=== PATIENT | female | born 2000 | race Caucasian/White ===

== ENCOUNTER → 2020-05-07 | Outpatient (CLI) | payer OTHER ==
[~2020-05-07] MED LIST: BUDE3CAP PO
== END ==
LOC: M LAB 11:58
PROVIDERS: ATTEND Physician Assistant
DX: K50.90 Crohn's disease, unspecified, without complications (principal)

== ENCOUNTER 2020-05-11 12:34 | Outpatient (CLI) | payer OTHER ==
[~2020-05-11] VITALS: Ht 165.1 cm; Wt 71.0 kg
[2020-05-11] VITALS (8 sets, daily range): BP systolic 101–117; BP diastolic 51–64
[2020-05-11] MEDS ORDERED: ACETAMINOPHEN 650MG PO PRIOR TO INFUSION PO ONE (13:30)
[2020-05-11] MEDS ORDERED: dexameTHASONE 20 MG IV PRIOR TO INFUSION IV ONE (13:30)
[2020-05-11] MEDS ORDERED: diphenhydrAMINE 25MG PO PRIOR TO INFUSION PO ONE (13:30)
[2020-05-11] MEDS ORDERED: NS 1,000 ML IV SCH (13:30)
[2020-05-11] MEDS ORDERED: inFLIXimab INJECTION 400 MG in NS 210 ML IV ONE (13:30)
== END 2020-05-11 16:20 | disposition home or self-care (01) ==
LOC: M INFU 12:34
PROVIDERS: ATTEND Physician Assistant
DX: K50.90 Crohn's disease, unspecified, without complications (principal); Z88.0 Allergy status to penicillin; Z88.8 Allergy status to other drugs, medicaments and biological substances
CPT/HCPCS: 96375; 96413; 96415; J1100; J1745

== ENCOUNTER 2020-07-09 08:40 | Outpatient (CLI) | payer OTHER ==
[2020-07-09] MEDS ORDERED: ACETAMINOPHEN TAB 650MG DOSE (2X325MG) ONE (08:53)
[2020-07-09] MEDS ORDERED: dexameTHASONE 20MG/5ML VIAL (J1100 PER 1MG) ONE (08:53)
[2020-07-09] MEDS ORDERED: dexameTHASONE 20MG/5ML VIAL (J1100 PER 1MG) As Ordered ONE (08:53)
[2020-07-09] MEDS ORDERED: inFLIXimab 100MG/10ML VIAL (REMICADE) J1745 PER 10MG ONE (08:53)
[2020-07-09] MEDS ORDERED: ACETAMINOPHEN TAB 650MG DOSE (2X325MG) As Ordered ONE (08:54)
== END 2020-07-09 12:30 | disposition home or self-care (01) ==
LOC: M INFU 08:40
PROVIDERS: ATTEND Nurse Practitioner Adult Health
DX: K50.90 Crohn's disease, unspecified, without complications (principal)
CPT/HCPCS: 96375; 96413; 96415; J1100; J1745

== ENCOUNTER → 2020-08-24 | Outpatient (CLI) | payer OTHER ==
[2020-08-24 15:04] LABS: BASO % 0.3 % (0.0-1.0); EOS # 0.1 10^3/uL (0.0-0.5); EOS % 0.9 % (0.0-3.0); HEMATOCRIT 40.5 % (36.0-47.0); HEMOGLOBIN 13.7 g/dl (12.0-15.5); LYMPH # 2.3 10^3/uL (1.5-5.0); LYMPH % 33.8 % (24.0-44.0); MEAN CORPUSCULAR HEMOGLOBIN 30.2 pg (27.0-33.0); MEAN CORPUSCULAR HGB CONC 33.8 g/dl (32.0-36.5); MEAN CORPUSCULAR VOLUME 89.2 fl (80.0-96.0); MONO # 0.4 10^3/uL (0.0-0.8); NEUTROPHILS % 58.9 % (36.0-66.0); PLATELET COUNT, AUTOMATED 250 10^3/uL (150-450); RED BLOOD COUNT 4.54 10^6/uL (4.00-5.40); WHITE BLOOD COUNT 6.8 10^3/uL (4.0-10.0)
[2020-08-24 15:33] LABS: ALBUMIN 3.5 GM/DL (3.2-5.2); ALT/SGPT 36 U/L (12-78); BILIRUBIN,DIRECT 0.2 MG/DL (0.0-0.2); BILIRUBIN,TOTAL 0.7 MG/DL (0.2-1.0); TOTAL PROTEIN 6.6 GM/DL (6.4-8.2)
[2020-08-24 15:52] LABS: HEPATITIS B SURFACE ANTIGEN NEGATIVE (NEGATIVE)
[2020-08-24 16:21] LABS: HEPATITIS C VIRUS ABY INDEX 0.1 INDEX (<0.8)
[2020-08-25 05:07] LABS: HEPATITIS A IgG TOTAL Negative (Negative); HEPATITIS B CORE ANTIBODY IGG Negative (Negative)
== END ==
LOC: M LAB 14:22
PROVIDERS: ATTEND Internal Medicine Gastroenterology
DX: D51.9 Vitamin B12 deficiency anemia, unspecified (principal); K50.80 Crohn's disease of both small and large intestine without complications

== ENCOUNTER → 2020-09-08 | Outpatient (REF) | payer OTHER | LOC: M SFHCWAGY 12:49 | PROVIDERS: ATTEND Nurse Practitioner Women's Health | DX: Z11.3 Encounter for screening for infections with a predominantly sexual mode of transmission (principal) ==

== ENCOUNTER 2021-01-15 12:26 | Outpatient (CLI) | payer OTHER ==
[~2021-01-15] VITALS: Ht 165.1 cm; Wt 70.0 kg
[~2021-01-15 12:26] MED LIST changes: +ACETAMINOPHEN 650MG ER TAB (TYLENOL ARTHRITIS) PO ONE; +NS 1,000 ML IV SCH; +diphenhydrAMINE 25MG CAP PO ONE
[2021-01-15 12:30] VITALS: BP 118/56
[2021-01-15] MEDS ORDERED: inFLIXimab INJECTION 400 MG in NS 210 ML IV ONE (12:30)
[2021-01-15] MEDS ORDERED: dexameTHASONE 20MG/5ML VIAL (J1100 PER 1MG) IV ONE (14:00)
[2021-01-15 14:30] VITALS: BP 118/56
[2021-01-15 15:00] VITALS: BP 103/59
[2021-01-15 16:00] VITALS: BP 121/61
== END 2021-01-15 16:00 | disposition home or self-care (01) ==
LOC: M INFU 12:26
PROVIDERS: ATTEND Internal Medicine Gastroenterology
DX: K50.90 Crohn's disease, unspecified, without complications (principal); Z88.0 Allergy status to penicillin; Z88.8 Allergy status to other drugs, medicaments and biological substances
CPT/HCPCS: 96375; 96413; J1100; J1745

== ENCOUNTER → 2021-02-25 | Outpatient (CLI) | payer OTHER ==
[~2021-02-25] MED LIST changes: -ACETAMINOPHEN 650MG ER TAB (TYLENOL ARTHRITIS) PO ONE; -NS 1,000 ML IV SCH; -diphenhydrAMINE 25MG CAP PO ONE
[2021-02-25 11:53] LABS: BASO # 0.1 10^3/uL (0.0-0.2); BASO % 0.8 % (0.0-1.0); EOS # 0.1 10^3/uL (0.0-0.5); EOS % 1.4 % (0.0-3.0); HEMATOCRIT 39.8 % (36.0-47.0); HEMOGLOBIN 13.4 g/dl (12.0-15.5); LYMPH # 2.1 10^3/uL (1.5-5.0); LYMPH % 32.9 % (24.0-44.0); MEAN CORPUSCULAR HEMOGLOBIN 29.3 pg (27.0-33.0); MEAN CORPUSCULAR HGB CONC 33.7 g/dl (32.0-36.5); MEAN CORPUSCULAR VOLUME 87.1 fl (80.0-96.0); MONO # 0.5 10^3/uL (0.0-0.8); MONO % 8.3 % (2.0-8.0); NEUTROPHILS # 3.5 10^3/uL (1.5-8.5); NEUTROPHILS % 56.3 % (36.0-66.0); PLATELET COUNT, AUTOMATED 251 10^3/uL (150-450); RED BLOOD COUNT 4.57 10^6/uL (4.00-5.40); WHITE BLOOD COUNT 6.2 10^3/uL (4.0-10.0)
[2021-02-25 12:40] LABS: ERYTHROCYTE SEDIMENTATION RATE 9 mm/hr (0-20)
[2021-02-25 14:40] LABS: ALBUMIN 3.8 GM/DL (3.2-5.2); ALT/SGPT 31 U/L (12-78); BILIRUBIN,DIRECT 0.1 MG/DL (0.0-0.2); BILIRUBIN,TOTAL 0.4 MG/DL (0.2-1.0); BLOOD UREA NITROGEN 9 MG/DL (7-18); C REACTIVE PROTEIN QUANTITATIV 0.31 MG/DL (0.00-0.30); CREATININE FOR GFR 0.68 MG/DL (0.55-1.30); FOLATE 20.9 NG/ML; GLOMERULAR FILTRATION RATE > 60.0 (>60); IRON (FE) 56 UG/DL (50-170); PERCENT SATURATION 15.6 % (13.2-45.0); TOTAL IRON BINDING CAPACITY 359 UG/DL (250-450); VITAMIN B12 LEVEL 419 PG/ML
== END ==
LOC: M LAB 10:01
PROVIDERS: ATTEND Internal Medicine Gastroenterology
DX: K50.80 Crohn's disease of both small and large intestine without complications (principal); D51.9 Vitamin B12 deficiency anemia, unspecified

== ENCOUNTER 2021-03-02 13:17 | Outpatient (CLI) | payer OTHER ==
[~2021-03-02 13:17] MED LIST changes: +ACETAMINOPHEN 650MG PO PRIOR TO INFUSION PO ONE; +NS 1,000 ML IV SCH; +dexameTHASONE 20 MG IV PRIOR TO INFUSION IV ONE; +inFLIXimab INJECTION 400 MG in NS 210 ML IV ONE
[2021-03-02 13:30] VITALS: BP 123/58
[2021-03-02 14:20] VITALS: BP 145/66
[2021-03-02 14:55] VITALS: BP 119/59
[2021-03-02 15:05] VITALS: BP 125/61
[2021-03-02 16:00] VITALS: BP 132/72
== END 2021-03-02 16:05 | disposition home or self-care (01) ==
LOC: M INFU 13:17
PROVIDERS: ATTEND Internal Medicine Gastroenterology
DX: K50.90 Crohn's disease, unspecified, without complications (principal); Z88.0 Allergy status to penicillin
CPT/HCPCS: 96375; 96413; 96415; J1100; J1745

== ENCOUNTER 2021-04-13 09:40 | Outpatient (CLI) | payer OTHER ==
[~2021-04-13] VITALS: Ht 162.6 cm; Wt 74.0 kg
[~2021-04-13 09:40] MED LIST changes: +diphenhydrAMINE 25MG CAP PO ONE
[2021-04-13 10:02] VITALS: BP 121/66
[2021-04-13 10:40] VITALS: BP 111/59
[2021-04-13 11:55] VITALS: BP 110/70
[2021-04-13 12:36] VITALS: BP_SYST 125
== END 2021-04-13 12:40 | disposition home or self-care (01) ==
LOC: M INFU 09:40
PROVIDERS: ATTEND Internal Medicine Gastroenterology
DX: K50.90 Crohn's disease, unspecified, without complications (principal); Z88.0 Allergy status to penicillin
CPT/HCPCS: 96375; 96413; 96415; J1100; J1745

== ENCOUNTER 2021-05-17 09:59 | Day surgery (SDC) | payer OTHER ==
[~2021-05-17] VITALS: Ht 167.6 cm; Wt 72.6 kg
[~2021-05-17 09:59] MED LIST changes: -ACETAMINOPHEN 650MG PO PRIOR TO INFUSION PO ONE; +INFL10VL IV; +NS 1,000 ML IV ONE; -NS 1,000 ML IV SCH; -dexameTHASONE 20 MG IV PRIOR TO INFUSION IV ONE; -diphenhydrAMINE 25MG CAP PO ONE; -inFLIXimab INJECTION 400 MG in NS 210 ML IV ONE
[2021-05-17] MEDS ORDERED: propofoL 200 MG/20 ML VIAL As Ordered ONE ×2 (11:08→11:22)
[2021-05-17] MEDS ORDERED: LIDOCAINE 2% 100MG/5ML SDV (FOR ANES.) As Ordered ONE (11:08)
--- NOTE | 2021-05-17 11:54 | ROOR ---
Patient Name: Tomeka Bates Procedure Date: 05/17/2021 11:19 AM Date of : 2000 Age: 20 Room: [facility] Gender: Female Note Status: Finalized Procedure: Colonoscopy Indications: Follow-up of Crohn's disease of the small bowel and colon, Disease activity assessment of Crohn's disease of the small bowel and colon Providers: Patel Kelley MD Referring MD: VLAD CHU MD Requesting Provider: Medicines: Monitored Anesthesia Care Complications: No immediate complications. Procedure: Pre-Anesthesia Assessment: - Prior to the procedure, a History and Physical was performed, and patient medications and allergies were reviewed. The patient is competent. The risks and benefits of the procedure and the sedation options and risks were discussed with the patient. All questions were answered and informed consent was obtained. Patient identification and proposed procedure were verified by the physician, the nurse and the anesthesiologist in the procedure room. Mental Status Examination: alert and oriented. Airway Examination: normal oropharyngeal airway and neck mobility. Respiratory Examination: clear to auscultation. CV Examination: normal. Prophylactic Antibiotics: The patient does not require prophylactic antibiotics. Prior Anticoagulants: The patient has taken no previous anticoagulant or antiplatelet agents. ASA Grade Assessment: II - A patient with mild systemic disease. After reviewing the risks and benefits, the patient was deemed in satisfactory condition to undergo the procedure. The anesthesia plan was to use monitored anesthesia care (MAC). Immediately prior to administration of medications, the patient was re-assessed for adequacy to receive sedatives. The heart rate, respiratory rate, oxygen saturations, blood pressure, adequacy of pulmonary ventilation, and response to care were monitored throughout the procedure. The physical status of the patient was re-assessed after the procedure. The Colonoscope was introduced through the anus and advanced to the terminal ileum, with identification of the appendiceal orifice and IC valve. The colonoscopy was performed without difficulty. The patient tolerated the procedure well. The quality of the bowel preparation was good. The ileocecal valve, appendiceal orifice, and rectum were photographed. Scope insertion time was 2 minutes. Scope withdrawal time was 9 minutes. The total duration of the procedure was 11 minutes. Findings: The perianal and digital rectal examinations were normal. The terminal ileum appeared normal. Normal mucosa was found in the entire colon. Biopsies for histology were taken with a cold forceps from the right colon, left colon and rectosigmoid colon for evaluation of microscopic colitis. Verification of patient identification for the specimen was done by the physician and nurse using the patient's name, date and medical record number. Estimated blood loss was minimal. Non-bleeding external and internal hemorrhoids were found. The hemorrhoids were small. Impression: - The examined portion of the ileum was normal. - Normal mucosa in the entire examined colon. Biopsied. - Non-bleeding external and internal hemorrhoids. Recommendation: - Patient has a contact number available for emergencies. The signs and symptoms of potential delayed complications were discussed with the patient. Return to normal activities tomorrow. Written discharge instructions were provided to the patient. - High fiber diet. - Continue present medications. - Use fiber, for example Citrucel, Fibercon, Konsyl or Metamucil. - Await pathology results. - Repeat colonoscopy in 5-10 years for surveillance based on pathology results. - Telephone GI clinic for pathology results in 2 weeks. - Return to primary care physician. Procedure Code(s): --- Professional --- 47192, Colonoscopy, flexible; with biopsy, single or multiple Diagnosis Code(s): --- Professional --- K64.8, Other hemorrhoids K50.80, Crohn's disease of both small and large intestine without complications CPT copyright 2019 [employer]. All rights reserved. The codes documented in this report are preliminary and upon shoe cementer review may be revised to meet current compliance requirements. Patel Kelley MD Patel Kelley MD 05/17/2021 11:53:45 AM Electronically signed by Patel Kelley MD Number of Addenda: 0 Note Initiated On: 05/17/2021 11:19 AM Estimated Blood Loss: Estimated blood loss was minimal.
[2021-05-17 12:10] VITALS: BP 117/68
== END 2021-05-17 12:27 | disposition home or self-care (01) ==
LOC: M OPP 09:59
PROVIDERS: ATTEND Internal Medicine Gastroenterology
DX: K63.5 Polyp of colon (principal); K64.8 Other hemorrhoids; K50.812 Crohn's disease of both small and large intestine with intestinal obstruction; Z79.899 Other long term (current) drug therapy; Z88.0 Allergy status to penicillin; Z88.8 Allergy status to other drugs, medicaments and biological substances

== ENCOUNTER 2021-05-25 13:46 | Outpatient (CLI) | payer OTHER ==
[~2021-05-25] VITALS: Ht 162.6 cm; Wt 74.0 kg
[~2021-05-25 13:46] MED LIST changes: +ACETAMINOPHEN 650MG PO PRIOR TO INFUSION PO ONE; -NS 1,000 ML IV ONE; +NS 1,000 ML IV SCH; +diphenhydrAMINE 25MG PO PRIOR TO INFUSION PO ONE; +inFLIXimab INJECTION 400 MG in NS 210 ML IV ONE
[2021-05-25 14:14] VITALS: BP 124/59
[2021-05-25 14:17] VITALS: BP 124/59
[2021-05-25 15:10] VITALS: BP 115/75
== END 2021-05-25 16:00 | disposition home or self-care (01) ==
LOC: M INFU 13:46
PROVIDERS: ATTEND Internal Medicine Gastroenterology
DX: K50.90 Crohn's disease, unspecified, without complications (principal)
CPT/HCPCS: 96413; J1745

== ENCOUNTER 2021-07-19 13:45 | Outpatient (CLI) | payer OTHER ==
[~2021-07-19] VITALS: Ht 162.6 cm; Wt 74.0 kg
[~2021-07-19 13:45] MED LIST changes: -ACETAMINOPHEN 650MG PO PRIOR TO INFUSION PO ONE; -NS 1,000 ML IV SCH; -diphenhydrAMINE 25MG PO PRIOR TO INFUSION PO ONE; -inFLIXimab INJECTION 400 MG in NS 210 ML IV ONE
[2021-07-19 13:50] VITALS: BP 121/65
[2021-07-19] MEDS ORDERED: dexameTHASONE 20 MG IV PRIOR TO INFUSION IV ONE (14:00)
[2021-07-19] MEDS ORDERED: inFLIXimab INJECTION 400 MG in NS 210 ML IV ONE (14:00)
[2021-07-19] MEDS ORDERED: ACETAMINOPHEN 650MG PO PRIOR TO INFUSION PO ONE (14:00)
[2021-07-19] MEDS ORDERED: NS 1,000 ML IV SCH (14:00)
[2021-07-19] MEDS: diphenhydrAMINE 25MG PO PRIOR TO INFUSION PO ONE ×2 (14:18→14:27)
[2021-07-19 15:30] VITALS: BP 117/65
[2021-07-19 15:58] VITALS: BP 121/65
[2021-07-19 16:30] VITALS: BP 124/71
== END 2021-07-19 16:30 | disposition home or self-care (01) ==
LOC: M INFU 13:45
PROVIDERS: ATTEND Internal Medicine Gastroenterology
DX: K50.90 Crohn's disease, unspecified, without complications (principal); Z88.0 Allergy status to penicillin; Z88.8 Allergy status to other drugs, medicaments and biological substances
CPT/HCPCS: 96375; 96413; J1100; J1745